=== PATIENT | female | born 1940 ===

== ENCOUNTER 2021-12-24 08:00 | Inpatient (IN) | payer OTHER ==
[~2021-12-24] VITALS: Ht 152.4 cm; Wt 70.3 kg
[2021-12-24] MEDS ORDERED: ZESTRIL5 MG PO (10:17)
[2021-12-24] MEDS ORDERED: ISOSORBIDE DINI30 MG PO (10:17)
[2021-12-24] MEDS ORDERED: LASIX20 MG PO (10:17)
[2021-12-24] MEDS ORDERED: METFORMIN HCL500 M3 PO (10:17)
[2021-12-24] MEDS ORDERED: FOLIC ACID0.8 M1 PO (10:18)
[2021-12-24] MEDS ORDERED: SINGULAIR 10MG10 MG PO (10:18)
[2021-12-24] MEDS ORDERED: CHILDREN'S ASPI81 MG PO (10:18)
[2021-12-24] MEDS ORDERED: GLIPIZIDE XL10 MG PO (10:18)
[2021-12-24] MEDS ORDERED: ZOCOR40 MG PO (10:19)
[2021-12-24] MEDS ORDERED: SYNTHROID112 MCG PO (14:04)
[2021-12-30] MEDS ORDERED: ISOSORBIDE MONO30 M2 ×2 (08:27→08:30)
[2021-12-30] MEDS ORDERED: ORENCIA CL125 MG/1 M (08:28)
[2021-12-30] MEDS ORDERED: METHOTREXATE2.5 MG (08:28)
[2021-12-31] MEDS ORDERED: INTEGRA PLUS C1 EACH PO (07:54)
[2021-12-31] MEDS ORDERED: BACTRIM DS TAB1 EACH PO (07:54)
[2021-12-31] MEDS ORDERED: OXYC1TAB9 PO (07:54)
[2021-12-31] MEDS ORDERED: XARELTO10 MG PO (07:54)
== END 2021-12-31 22:39 | disposition home or self-care (01) | DRG 470 ==
LOC: SURH 12-29 06:42 → O/R 12-29 06:42 → SURG 12-29 08:00 → SURH 12-29 23:09
PROVIDERS: ADMIT Orthopaedic Surgery Sports Medicine; ATTEND Orthopaedic Surgery Sports Medicine
PROC: 0SRB0JZ Replacement of Left Hip Joint with Synthetic Substitute, Open Approach (ICD-10-PCS; principal; 2021-12-29 13:00)
DX: M16.12 Unilateral primary osteoarthritis, left hip (principal); I10 Essential (primary) hypertension; E03.9 Hypothyroidism, unspecified; Z96.642 Presence of left artificial hip joint; Z20.822 Contact with and (suspected) exposure to COVID-19